=== PATIENT | female | born 1955 | race Caucasian/White ===

== ENCOUNTER → 2021-05-11 12:45 | Outpatient (CLI) | payer BC, MEDICARE, SELFPAY ==
--- NOTE | ~2021-05-11 | MM_ITS ---
EXAMINATION: MM screening brittany BI w nakia HISTORY: Screening TECHNIQUE: Craniocaudal and mediolateral oblique 3-D tomosynthesis images were obtained and synthetic 2-D images were generated. CAD analysis was submitted and interpreted. COMPARISON: Comparison to multiple prior studies sequentially, with oldest reviewed study dated 04/03. BREAST PARENCHYMAL COMPOSITION: There are scattered areas of fibroglandular density. FINDINGS: There is no evidence of suspicious mass, calcification, or architectural distortion to sugg est malignancy in either breast. There has been no suspicious interval change. IMPRESSION: 1. No mammographic evidence of malignancy. 2. Recommend routine screening mammography in one year. BI-RADS Category 1: Negative Reviewed, dictated and finalized at location A.
--- NOTE | ~2021-05-11 | DEXA_ITS ---
Bone Density Report Name: Abi Liu Age: 66 Sex: Female Ethnicity: White Date of : 1955 Indication: osteopenia; parental hip fracture; height loss; prior fracture; postmenopausal Referring Provider: KEYA WATSON Study: Bone densitometry was performed. Exam Date: May 11, 2021 Accession number: [id number] Bone Density: Region BMD T-score Z-score Classification AP Spine (L1-L4) 0.861 -1.7 0.2 Osteopenia Femoral Neck (Left) 0.629 -2.0 -0.3 Osteopenia Total Hip (Left) 0.888 -0.4 0.9 Normal Femoral Neck (Right) 0.647 -1.8 -0.2 Osteopenia Total Hip (Right) 0.931 -0.1 1.3 Normal Total Hip Mean 0.910 -0.3 1.1 Normal World Health Organization criteria for BMD impression classify patients as: Normal (T-score at or above -1.0), Osteopenia (T-score between -1.0 and -2.5), or Osteoporosis (T-score at or below -2.5). 10-year Fracture Risk(1): Major Osteoporotic Fracture 29% Hip Fracture 4.1% Reported Risk Factors: [place] (), Neck BMD=0.629, BMI=26.6, previous fracture, parental fracture (1) FRAX(R) Version 3.08. Fracture probability calculated for an untreated patient. Fracture probability may be lower if the patient has received treatment. Previous Exams: Region Exam Age BMD T-score BMD Change BMD Change Date g/cm2 vs Baseline vs Previous AP Spine(L1-L4) 05/11/2021 66 0.861 -1.7 -0.033* -0.027* 04/27/2019 64 0.888 -1.4 -0.006 0.011 04/05/2018 63 0.877 -1.5 -0.017 -0.002 04/03/2016 61 0.879 -1.5 -0.015 0.007 12/30/2012 57 0.872 -1.6 -0.022 -0.005 05/01/2010 55 0.877 -1.5 -0.017 -0.017 01/06/2007 52 0.894 -1.4 Total Hip(Left) 05/11/2021 66 0.888 -0.4 -0.050* 0.004 04/27/2019 64 0.884 -0.5 -0.054* 0.010 04/05/2018 63 0.874 -0.6 -0.064* -0.047* 04/03/2016 61 0.921 -0.2 -0.017 -0.002 12/30/2012 57 0.923 -0.2 -0.015 0.063* 05/01/2010 55 0.861 -0.7 -0.077* -0.077* 01/06/2007 52 0.938 0.0 Total Hip(Right) 05/11/2021 66 0.931 -0.1 -0.036* 0.005 04/27/2019 64 0.926 -0.1 -0.041* 0.001 04/05/2018 63 0.925 -0.1 -0.042* -0.001 04/03/2016 61 0.927 -0.1 -0.041* 0.030* 12/30/2012 57 0.896 -0.4 -0.071* 0.013 05/01/2010 55 0.884 -0.5 -0.084* -0.084* 01/06/2007 52 0.968 0.2
== END ==
PROVIDERS: PCP Physician Assistant; Visit Provider Obstetrics & Gynecology Gynecology
DX: Z12.31 Encounter for screening mammogram for malignant neoplasm of breast (principal); Z78.0 Asymptomatic menopausal state; M85.88 Other specified disorders of bone density and structure, other site; M85.852 Other specified disorders of bone density and structure, left thigh; M85.851 Other specified disorders of bone density and structure, right thigh
CPT/HCPCS: 77063; 77067; 77080

== ENCOUNTER → 2022-12-17 15:42 | Outpatient (CLI) | payer BC, MEDICARE, SELFPAY ==
--- NOTE | ~2022-12-17 | MM_ITS ---
EXAMINATION: MM screening brittany BI w nakia HISTORY: Screening mammogram, family history of breast cancer in her mother. TECHNIQUE: Craniocaudal and mediolateral oblique 3-D tomosynthesis images were obtained and synthetic 2-D images were generated. CAD analysis was submitted and interpreted. COMPARISON: 05/11/2021, 04/27/2019, 04/05/2019 BREAST PARENCHYMAL COMPOSITION: There are scattered areas of fibroglandular density. FINDINGS: No suspicious mass, calcification, or architectural distortion are identified in either elvis ast to suggest malignancy. There has been no suspicious interval change. IMPRESSION: 1. No mammographic evidence of malignancy. 2. Recommend routine screening mammography in one year. BI-RADS Category 1: Negative Reviewed, dictated and finalized at location A. GETTER
== END ==
PROVIDERS: PCP Physician Assistant; Visit Provider Obstetrics & Gynecology Gynecology
DX: Z12.31 Encounter for screening mammogram for malignant neoplasm of breast (principal)
CPT/HCPCS: 77063; 77067

== ENCOUNTER 2023-12-16 15:53 | Outpatient (CLI) | payer BC, SELFPAY ==
--- NOTE | ~2023-12-16 | MM_ITS ---
EXAMINATION: MM screening brittany BI w nakia HISTORY: Screening mammogram TECHNIQUE: Craniocaudal and mediolateral oblique 3-D tomosynthesis images were obtained and synthetic 2-D images were generated. CAD analysis was submitted and interpreted. COMPARISON: 12/17/2022, 05/11/2021 bilateral screening mammogram examinations BREAST PARENCHYMAL COMPOSITION: There are scattered areas of fibroglandular density. FINDINGS: There is no evidence of suspicious mass, calcification, or architectural distortion to sugg est malignancy in either breast. There has been no suspicious interval change. IMPRESSION: 1. No mammographic evidence of malignancy. 2. Recommend routine screening mammography in one year. BI-RADS Category 1: Negative Reviewed, dictated and finalized at location A. ER
--- NOTE | ~2023-12-16 | DEXA_ITS ---
Bone Density Report Name: CHUY CHAPARRO Age: 68 Sex: Female Ethnicity: White Date of : 1955 Indication: osteopenia; monitoring treatment; parental hip fracture; height loss; prior fracture; postmenopausal Referring Provider: KEYA WATSON Study: Bone densitometry was performed. Exam Date: December 16, 2023 Accession number: [id number] Bone Density: Region BMD T-score Z-score Classification AP Spine (L1-L4) 0.954 -0.8 1.3 Normal Femoral Neck (Left) 0.640 -1.9 -0.1 Osteopenia Total Hip (Left) 0.913 -0.2 1.3 Normal Femoral Neck (Right) 0.700 -1.3 0.4 Osteopenia Total Hip (Right) 0.949 0.1 1.6 Normal Total Hip Mean 0.931 -0.1 1.5 Normal World Health Organization criteria for BMD impression classify patients as: Normal (T-score at or above -1.0), Osteopenia (T-score between -1.0 and -2.5), or Osteoporosis (T-score at or below -2.5). 10-year Fracture Risk: FRAX not reported because: Treated for osteoporosis Previous Exams: Region Exam Age BMD T-score BMD Change BMD Change Date g/cm2 vs Baseline vs Previous AP Spine(L1-L4) 12/16/2023 68 0.954 -0.8 0.060* 0.093* 05/11/2021 66 0.861 -1.7 -0.033* -0.027* 04/27/2019 64 0.888 -1.4 -0.006 0.011 04/05/2018 63 0.877 -1.5 -0.017 -0.002 04/03/2016 61 0.879 -1.5 -0.015 0.007 12/30/2012 57 0.872 -1.6 -0.022 -0.005 05/01/2010 55 0.877 -1.5 -0.017 -0.017 01/06/2007 52 0.894 -1.4 Total Hip(Left) 12/16/2023 68 0.913 -0.2 -0.025 0.025 05/11/2021 66 0.888 -0.4 -0.050* 0.004 04/27/2019 64 0.884 -0.5 -0.054* 0.010 04/05/2018 63 0.874 -0.6 -0.064* -0.047* 04/03/2016 61 0.921 -0.2 -0.017 -0.002 12/30/2012 57 0.923 -0.2 -0.015 0.063* 05/01/2010 55 0.861 -0.7 -0.077* -0.077* 01/06/2007 52 0.938 0.0 Total Hip(Right) 12/16/2023 68 0.949 0.1 -0.018 0.018 05/11/2021 66 0.931 -0.1 -0.036* 0.005 04/27/2019 64 0.926 -0.1 -0.041* 0.001 04/05/2018 63 0.925 -0.1 -0.042* -0.001 04/03/2016 61 0.927 -0.1 -0.041* 0.030* 12/30/2012 57 0.896 -0.4 -0.071* 0.013 05/01/2010 55 0.884 -0.5 -0.084* -0.084* 01/06/2007 52 0.968 0.2 *Denotes significance at 95% confidence
== END 2023-12-16 15:54 ==
PROVIDERS: PCP Obstetrics & Gynecology Gynecology; Visit Provider Obstetrics & Gynecology Gynecology
DX: Z12.31 Encounter for screening mammogram for malignant neoplasm of breast (principal); Z78.0 Asymptomatic menopausal state; M85.852 Other specified disorders of bone density and structure, left thigh; M85.851 Other specified disorders of bone density and structure, right thigh
CPT/HCPCS: 77063; 77067; 77080